=== PATIENT | female | born 1985 | race Caucasian/White ===

== ENCOUNTER 2016-04-03 21:41 | Emergency (ER) | payer OTHER ==
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
--- NOTE | 2016-04-03 23:50 | ED MED RECONCILIATION SUMMARY ---
Patient: MINOR BERKOWITZ Medication Reconciliation Report [facility] VisitID: [id number] [address] [place] [address] 30y, F Registration Date/Time: 04/03/2016 Weight: 54.4 kg Height/Length: 65 in. BMI: 20.0 ALLERGIES: Amoxicillin, Unkonwn Antibiotic The patient's Home Medications are listed below: NONE. The source(s) of the original Home Medication information: patient The following Medications were given to the patient in the Emergency Department: None. The following Medications were prescribed to the patient: Ibuprofen 800 mg tablets: take 1 tablet orally every 8 hours for 5 days, as needed for pain. Dispense fifteen (15). No refill. -- Reina Johnson P.A.-C
--- NOTE | 2016-04-03 23:50 | ED MAR SUMMARY ---
..... Medication Administration Record [facility] [address] [place], [place] [id number] Patient: MINOR BERKOWITZ Visit ID: [id number] 30y, F Weight: 54.4 kg Height/Length: 65 in BMI: 20 ALLERGIES: Unkonwn Antibiotic, Amoxicillin
--- NOTE | 2016-04-03 23:50 | ED MED RECONCILIATION SUMMARY ---
Patient: MINOR BERKOWITZ Medication Reconciliation Report [facility] VisitID: [id number] [address] [place] [address] 30y, F Registration Date/Time: 04/03/2016 Weight: 54.4 kg Height/Length: 65 in. BMI: 20.0 ALLERGIES: Amoxicillin, Unkonwn Antibiotic The patient's Home Medications are listed below: NONE. The source(s) of the original Home Medication information: patient The following Medications were given to the patient in the Emergency Department: None. The following Medications were prescribed to the patient: Ibuprofen 800 mg tablets: take 1 tablet orally every 8 hours for 5 days, as needed for pain. Dispense fifteen (15). No refill. -- Reina Johnson P.A.-C
--- NOTE | 2016-04-03 23:50 | ED MAR SUMMARY ---
..... Medication Administration Record [facility] [address] [place], [place] [id number] Patient: MINOR BERKOWITZ Visit ID: [id number] 30y, F Weight: 54.4 kg Height/Length: 65 in BMI: 20 ALLERGIES: Unkonwn Antibiotic, Amoxicillin
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
== END 2016-04-03 22:53 | disposition home or self-care (01) ==
LOC: ED SRH 21:41
DX: G89.11 Acute pain due to trauma (principal); M54.2 Cervicalgia; V59.40XA Driver of pick-up truck or van injured in collision with unspecified motor vehicles in traffic accident, initial encounter; Y93.89 Activity, other specified; Y92.410 Unspecified street and highway as the place of occurrence of the external cause; Y99.9 Unspecified external cause status